=== PATIENT | female | born 1990 | race Caucasian/White ===

== ENCOUNTER 2018-04-14 13:10 | Emergency (ER) | payer OTHER ==
[~2018-04-14] VITALS: Ht 172.7 cm; Wt 53.1 kg
--- NOTE | 2018-04-14 13:34 | NUR ---
is at bedside doing the MSE.
[2018-04-14 13:47] LABS: *URINE HCG, QUAL NEGATIVE (NEGATIVE)
--- NOTE | 2018-04-14 14:29 | NUR ---
Patient discharged to home in stable conditon. Written and verbal after care instructions given. Patient verbalizes understanding of instructions.
== END 2018-04-14 14:31 | disposition home or self-care (01) ==
LOC: ER 13:13
DX: B36.0 Pityriasis versicolor (principal)
CPT/HCPCS: 76856; 84703; A4663

== ENCOUNTER 2018-05-17 17:07 | Emergency (ER) | payer OTHER ==
[~2018-05-17] VITALS: Ht 175.3 cm; Wt 52.2 kg
[2018-05-17] MEDS ORDERED: GADODIAMIDE 5 MMOL/10 ML VIAL IV ONE (17:08)
--- NOTE | 2018-05-17 17:22 | NUR ---
Dr Wilson at the bedside for MSE.
[2018-05-17 17:43] LABS: BASOPHILS % (AUTO) 0.6 % (0.0-2.0); EOSINOPHILS % (AUTO) 0.6 % (0.0-7.0); HEMATOCRIT 40.5 % (31.2-41.9); HEMOGLOBIN 13.8 g/dL (10.9-14.3); LYMPHOCYTES % (AUTO) 40.4 % (20.5-51.5); MEAN CORPUSCULAR HEMOGLOBIN 32.4 uug (24.7-32.8); MEAN CORPUSCULAR HGB CONC 34 g/dL (32.3-35.6); MEAN CORPUSCULAR VOLUME 94.8 fL (75.5-95.3); MONOCYTES # (AUTO) 0.4 K/uL (2.0-10.0); NEUTROPHILS # (AUTO) 2.6 K/uL (1.8-8.9); NEUTROPHILS % (AUTO) 51.4 % (38.5-71.5); PLATELET COUNT (AUTO) 172 K/uL (179-408); RED BLOOD CELL COUNT(AUTO) 4.27 MIL/uL (3.63-4.92)
[2018-05-17 17:52] LABS: CREATININE 0.7 mg/dL (0.6-1.3); POTASSIUM 4.4 mmol/L (3.5-5.1)
[2018-05-17 17:58] LABS: BILIRUBIN,DIRECT 0.1 mg/dL (0.0-0.2); BILIRUBIN,TOTAL 0.2 mg/dL (0.2-1.0); TOTAL PROTEIN, SERUM 7.5 g/dL (6.4-8.2)
--- NOTE | 2018-05-17 18:44 | NUR ---
TEXTED DR. BAER FOR MRI BRAIN W/WO APPROVAL.
--- NOTE | 2018-05-17 18:55 | NUR ---
Per Naveed(weld technician) at [facility], pt can have MRI done at 2030. Called [facility] ETA is 2015 and trip #[id number].
--- NOTE | 2018-05-17 20:10 | NUR ---
Report given to carlosn #[id number]. Patient stable and en route to [facility] for MRI. All belongings taken with patient.
--- NOTE | 2018-05-17 21:49 | NUR ---
Pt back in ER from MRI.
--- NOTE | 2018-05-17 22:38 | NUR ---
Dr. Connell at bedside for update.
[2018-05-17] MEDS ORDERED: METOCLOPRAMIDE HCL 10 MG/2 ML VIAL ONE (22:44)
[2018-05-17] MEDS ORDERED: METOCLOPRAMIDE HCL 10 MG/2 ML VIAL IV ONE (22:45)
--- NOTE | 2018-05-17 23:17 | NUR ---
IV removed. Catheter intact and site benign. Pressure and 4x4 gauze applied to site. No bleeding noted.
--- NOTE | 2018-05-17 23:20 | NUR ---
Patient discharged to home in stable conditon. Written and verbal after care instructions given. Patient verbalizes understanding of instructions.
[2018-05-17 23:24] VITALS: BP 124/80
== END 2018-05-17 23:24 | disposition home or self-care (01) ==
LOC: ER 17:07
DX: G43.B0 Ophthalmoplegic migraine, not intractable (principal)
CPT/HCPCS: 36415; 70450; 70553; 80048; 80076; 84702; 85025; 85730; 93005; 96374; 99284; J2765; A4663; A9579